=== PATIENT | female | born 1950 | race Caucasian/White ===

== ENCOUNTER 2024-11-10 15:08 | Emergency (ER) | payer OTHER ==
[~2024-11-10] VITALS: Ht 152.4 cm; Wt 64.5 kg
[~2024-11-10 15:08] MED LIST: CELE-116 MT; FAMO40TA7 MT; HYDR200T35 MT; IMIT25 PO; LEVO50TA8 PO; LOSA25TA26 MT; LYR25 MT; MELA3TAB40 PO; PRED2.5T4 MT; SODI1GRA MC
[2024-11-10 15:25] VITALS: O2SAT 96
[2024-11-10] MEDS: ONDANSETRON 4MG ODT PO ONE ×2 (16:34→18:56)
[2024-11-10] MEDS: KETOROLAC 30MG/ML VIAL IM ONE (17:15)
[2024-11-10] MEDS: ACETAMINOPHEN 325MG TABLET PO ONE (17:16)
[2024-11-10 17:19] LABS: CLARITY URINE CLEAR (CLEAR); COLOR URINE YELLOW (YELLOW); GLUCOSE URINE NEGATIVE (NEGATIVE); KETONES URINE 1+ (NEGATIVE); LEUKOCYTE ESTERASE URINE TRACE (NEGATIVE); NITRITE URINE NEGATIVE (NEGATIVE); OCCULT BLOOD URINE NEGATIVE (NEGATIVE); PH URINE 7.0 (4.5-8.0); PROTEIN URINE TRACE (NEGATIVE); SPECIFIC GRAVITY URINE 1.021 (1.005-1.030); UROBILINOGEN URINE 0.2 E.U./dL (0.2-1.0)
[2024-11-10 17:51] LABS: BACTERIA URINE TRACE; SQUAMOUS EPITHELIAL CELL URINE 1+ /lpf (RARE/1+); WBC URINE 0-2 /hpf (0-2)
[2024-11-10] MEDS: SODIUM CHLORIDE 0.9% 1,000 ML IV ONE (18:56)
[2024-11-10] MEDS: ONDANSETRON HCL 4MG/2ML INJ IV STA (18:56)
[2024-11-10 19:03] LABS: BASOPHILS % 0.6 % (0.0-2.0); EOSINOPHILS % 2.7 % (0.0-5.0); HEMATOCRIT. 35.3 % (36.0-48.0); HEMOGLOBIN. 12.1 g/dL (12.0-16.0); LYMPHOCYTES % 24.3 % (20.0-50.0); MEAN PLATELET VOLUME 6.5 fl (7.4-10.4); MONOCYTES % 8.2 % (2.0-8.0); NEUTROPHILS % 64.2 % (40.0-76.0); PLATELET 252 x1000/uL (130-400); RED BLOOD CELL COUNT 3.98 mill/uL (4.2-5.4); RED CELL DISTRIBUTION WIDTH 17.5 % (11.6-14.6)
[2024-11-10 19:32] LABS: CREATININE 0.4 mg/dL (0.6-1.0); UREA NITROGEN BLOOD < 5 mg/dL (9-23)
[2024-11-10 19:34] LABS: ASPARTATE AMINOTRANSFERASE 22 IU/L (<34); BILIRUBIN DIRECT 0.2 mg/dL (<=3.0); BILIRUBIN TOTAL 0.7 mg/dL (0.1-1.0); PROTEIN TOTAL 7.0 g/dL (6.0-8.3)
[2024-11-10] MEDS: DIPHENHYDRAMINE 50MG/ML VIAL IV ONE (19:52)
[2024-11-10] MEDS: DEXAMETHASONE 10 MG/ML VIAL IV ONE (19:52)
[2024-11-10] MEDS: SUMATRIPTAN SUCCINATE 6MG/0.5ML VIAL SUBCUT ONE (19:52)
[2024-11-10] MEDS: PROCHLORPERAZINE 10MG/2ML VIAL IV ONE (19:52)
[2024-11-11] VITALS: BP 136/71; PULSE 70; RESP 14; TEMP 36.7; O2SAT 96
== END 2024-11-11 00:14 | disposition short-term general hospital (02) ==
LOC: ER 15:08 → EDBEDREQ 19:57 → ER 11-11 00:14
DX: E87.1 Hypo-osmolality and hyponatremia (principal); E87.6 Hypokalemia; R11.2 Nausea with vomiting, unspecified; E87.8 Other disorders of electrolyte and fluid balance, not elsewhere classified; N39.0 Urinary tract infection, site not specified; R51.9 Headache, unspecified; N39.41 Urge incontinence; I10 Essential (primary) hypertension; Z79.1 Long term (current) use of non-steroidal anti-inflammatories (NSAID); Z79.52 Long term (current) use of systemic steroids; Z79.899 Other long term (current) drug therapy
CPT/HCPCS: 80076; 80048; 81003; 85025; 36415; 96361; 96372; 96374; 96375; 99285; Q0162; J1100; J1200; J1885; J2405; J0780; J3030; J7030; Z7610 ×3; A4606